=== PATIENT | female | born 1940 | race Caucasian/White ===

== ENCOUNTER 2018-05-29 18:03 | Outpatient (REF) | payer MEDICARE, OTHER, SELFPAY ==
[2018-05-29 22:12] LABS: Hemoglobin A1C 6.7 % (4.5-6.2)
[2018-05-29 22:15] LABS: Anion Gap 3.4 mmol/L (3-11); BUN 17 mg/dL (7-18); CO2 38.6 mmol/L (21.0-32.0); CREATININE 0.59 mg/dL (0.55-1.02); Calcium 9.1 mg/dL (8.5-10.1); Chloride 100 mmol/L (98-107); Glucose 133 mg/dL (70-100); Potassium 4.2 mmol/L (3.5-5.1); Sodium 142 mmol/L (136-145); TSH (W/Ref FT4) 9.46 uIU/mL (0.358-3.74)
== END 2018-05-29 18:23 ==
LOC: NCHCN 18:03
PROVIDERS: PCP Family Medicine; Visit Provider Family Medicine
DX: R73.09 Other abnormal glucose (principal); E05.90 Thyrotoxicosis, unspecified without thyrotoxic crisis or storm; J44.9 Chronic obstructive pulmonary disease, unspecified
CPT/HCPCS: 80048; 83036; 84439; 84443

== ENCOUNTER 2018-08-02 15:02 | Outpatient (REF) | payer MEDICARE, OTHER, SELFPAY ==
[2018-08-02 21:20] LABS: TSH (W/Ref FT4) 1.61 uIU/mL (0.358-3.74)
== END 2018-08-02 15:22 ==
LOC: NCHCN 15:02
PROVIDERS: PCP Family Medicine; Visit Provider Family Medicine
DX: E05.90 Thyrotoxicosis, unspecified without thyrotoxic crisis or storm (principal)
CPT/HCPCS: 84443

== ENCOUNTER 2019-01-22 18:16 | Outpatient (REF) | payer MEDICARE, OTHER, SELFPAY ==
[2019-01-22 21:40] LABS: COMMENT (LAB VIEW ONLY) 115.54 mg/dL; Microalb ug/mg Crea 11.6 ug/mg Cr
== END 2019-01-22 18:36 ==
LOC: NCHCN 18:16
PROVIDERS: PCP Family Medicine; Visit Provider Family Medicine
DX: E05.90 Thyrotoxicosis, unspecified without thyrotoxic crisis or storm (principal); R63.4 Abnormal weight loss; J44.9 Chronic obstructive pulmonary disease, unspecified; R73.09 Other abnormal glucose
CPT/HCPCS: 82043; 82570; 84443

== ENCOUNTER 2019-04-08 16:42 | Outpatient (REF) | payer MEDICARE, OTHER, SELFPAY ==
[2019-04-08 21:16] LABS: HCT 42.5 % (36.0-46.0); HGB 12.9 g/dL (12.0-15.5); Mean Corp. HGB Concentration 30.4 g/dL (32.0-36.0); Mean Corpuscular Hemoglobin 29.2 pg (27.0-33.0); Mean Corpuscular Volume 96.2 fL (80-95); Mean Platelet Volume 9.9 fL (8.0-11.0); Platelet Count 265 x1000/uL (130-400); RBC 4.42 m/cumm (4.00-5.20); RBC Distribution Width 13.2 % (11.7-14.6); White Blood Cell Count 10.26 k/cumm (4.4-10.8)
[2019-04-08 21:36] LABS: TSH (W/Ref FT4) < 0.01 uIU/mL (0.36-3.74)
[2019-04-08 21:53] LABS: FREE T4 1.68 ng/dL (0.76-1.46)
== END 2019-04-08 17:02 ==
LOC: NCHCN 16:42
PROVIDERS: PCP Family Medicine; Visit Provider Family Medicine
DX: E05.90 Thyrotoxicosis, unspecified without thyrotoxic crisis or storm (principal); R63.4 Abnormal weight loss
CPT/HCPCS: 85027; 84439; 84443; 85025

== ENCOUNTER 2019-07-24 14:16 | Outpatient (REF) | payer MEDICARE, OTHER, SELFPAY | END 2019-07-24 14:36 | LOC: NCHCN 14:16 | PROVIDERS: PCP Family Medicine; Visit Provider Family Medicine | DX: E05.90 Thyrotoxicosis, unspecified without thyrotoxic crisis or storm (principal) | CPT/HCPCS: 84443 ==

== ENCOUNTER 2020-06-11 11:22 | Outpatient (REF) | payer MEDICARE, OTHER, SELFPAY ==
[2020-06-11 13:54] LABS: ALT 15 U/L (14-59); AST 16 U/L (15-37); Albumin 3.8 g/dL (3.4-5.0); Alkaline Phosphatase 67 U/L (46-116); Anion Gap -0.4 mmol/L (3-11); BUN 14 mg/dL (7-18); Bilirubin, Total 0.8 mg/dL (0.2-1.0); CO2 39.4 mmol/L (21.0-32.0); CREATININE 0.5 mg/dL (0.55-1.02); Calcium 8.7 mg/dL (8.5-10.1); Calculated LDL 95 mg/dL (<100); Chloride 99 mmol/L (98-107); Cholesterol 206 mg/dL (<200); Glucose 124 mg/dL (74-106); HDL Cholesterol 98 mg/dL (40-60); Potassium 4.3 mmol/L (3.5-5.1); Sodium 138 mmol/L (136-145); Total Protein 7.4 g/dL (6.4-8.2); Triglyceride 67 mg/dL (<150)
[2020-06-11 14:08] LABS: Hemoglobin A1C 6.4 % (<5.7)
[2020-06-11 14:38] LABS: COMMENT (LAB VIEW ONLY) < 13.00 mg/dL
== END 2020-06-11 11:23 | disposition home or self-care (01) ==
LOC: NCHCN 11:22
PROVIDERS: PCP Family Medicine; Visit Provider Family Medicine
DX: E09.9 Drug or chemical induced diabetes mellitus without complications (principal); E05.90 Thyrotoxicosis, unspecified without thyrotoxic crisis or storm; J44.9 Chronic obstructive pulmonary disease, unspecified; E78.00 Pure hypercholesterolemia, unspecified
CPT/HCPCS: 80053; 80061; 82043; 82570; 83036; 84443

== ENCOUNTER 2020-11-26 08:13 | Outpatient (REF) | payer MEDICARE, OTHER, SELFPAY ==
[2020-11-25 21:59] LABS: Hemoglobin A1C 6.1 % (<5.7)
[2020-11-25 22:01] LABS: COMMENT (LAB VIEW ONLY) 114.04 mg/dL; Microalb ug/mg Crea 15.6 ug/mg Cr
[2020-11-25 22:07] LABS: TSH (W/Ref FT4) 2.29 uIU/mL (0.36-3.74)
== END 2020-11-26 08:14 | disposition home or self-care (01) ==
LOC: NCHCN 08:13
PROVIDERS: PCP Family Medicine; Visit Provider Family Medicine
DX: E09.9 Drug or chemical induced diabetes mellitus without complications (principal); E05.90 Thyrotoxicosis, unspecified without thyrotoxic crisis or storm
CPT/HCPCS: 82043; 82570; 83036; 84443

== ENCOUNTER 2021-12-28 21:36 | Outpatient (REF) | payer MEDICARE, OTHER, SELFPAY ==
[2021-12-28 21:55] LABS: TSH 2.65 uIU/mL (0.36-3.74)
== END 2021-12-28 21:37 | disposition home or self-care (01) ==
LOC: NCHCN 21:36
PROVIDERS: PCP Family Medicine; Visit Provider Family Medicine
DX: E05.90 Thyrotoxicosis, unspecified without thyrotoxic crisis or storm (principal)
CPT/HCPCS: 84443